=== PATIENT | male | born 1975 | race Hispanic/Latino ===

== ENCOUNTER 2020-08-07 15:28 | Emergency (ER) | payer MEDICAID, OTHER ==
[2020-08-07] MEDS ORDERED: ALBUTEROL INHALER 90MCG/INH IH ONE (17:14)
== END 2020-08-07 17:53 | disposition home or self-care (01) ==
LOC: EDH 15:28
DX: U07.1 COVID-19 (principal); J12.82 Pneumonia due to coronavirus disease 2019; Z87.891 Personal history of nicotine dependence
CPT/HCPCS: 71045; 87426; 99284; U0003